=== PATIENT | male | born 1970 | race Hispanic/Latino ===

== ENCOUNTER 2024-05-17 13:59 | Emergency (ER) | payer SELFPAY ==
[2024-05-17 14:17] VITALS: BP 153/82; PULSE 90; RESP 18; TEMP 37.2; O2SAT 97; BMI 26.6
== END 2024-05-17 16:51 | disposition left against medical advice (07) ==
PROVIDERS: Emergency Provider Emergency Medicine; PCP Physician Assistant Medical
CPT/HCPCS: 99281